=== PATIENT | female | born 1995 | race Caucasian/White ===

== ENCOUNTER 2021-09-25 17:34 | Emergency (ER) | payer MEDICAID, SELFPAY ==
[~2021-09-25] VITALS: Ht 170.2 cm; Wt 76.2 kg
[2021-09-25 17:34] VITALS: BP_SYST 139
--- NOTE | 2021-09-25 17:35 | NUR ---
Patient triaged and placed in waiting room. VSS and patient appears in no acute distress at this time. Accompanied by FAMILY, awaiting available bed, and MD notified of need for MSE.
--- NOTE | 2021-09-25 18:12 | NUR ---
PATIENT BROUGHT IN COMPLAINING OF RIGHT FOOT PAIN AND SWELLING TODAY AFTER TWISTED HER RIGHT FOOT.
--- NOTE | 2021-09-25 18:36 | NUR ---
ER Dr. COPPOLA at bedside examining patient.
[2021-09-25] MEDS ORDERED: HYDR-3917 PO (19:19)
[2021-09-25] MEDS ORDERED: IBUP-1971 PO (19:19)
[2021-09-25 19:22] VITALS: BP_SYST 123
--- NOTE | 2021-09-25 19:22 | NUR ---
Patient given written and verbal discharge instructions and verbalizes understanding. ER MD discussed with patient the results and treatment provided. Patient in stable condition. ID arm band removed. Rx of NORCO, MOTRIN given. Patient educated on pain management and to follow up with PMD. Pain Scale 0/10 Opportunity for questions provided and answered. Medication side effect fact sheet provided.
== END 2021-09-25 19:22 | disposition home or self-care (01) ==
LOC: SED 17:34
DX: S92.351A Displaced fracture of fifth metatarsal bone, right foot, initial encounter for closed fracture (principal); Z79.899 Other long term (current) drug therapy; X50.1XXA Overexertion from prolonged static or awkward postures, initial encounter; Y93.89 Activity, other specified; Y92.89 Other specified places as the place of occurrence of the external cause; Y99.8 Other external cause status
CPT/HCPCS: 99283